=== PATIENT | male | born 1955 | race Caucasian/White ===

== ENCOUNTER 2024-03-26 09:19 | Emergency (ER) | payer MEDICARE ==
[~2024-03-26] VITALS: Ht 175.3 cm; Wt 7.5 kg
[2024-03-26 09:20] VITALS: BP 156/84; PULSE 70; RESP 18; TEMP 97.1; O2SAT 96
--- NOTE | 2024-03-26 10:15 | HMCIMG ---
KNEE 3VWS LT INDICATION: knee TECHNIQUE: KNEE 3VWS LT. FINDINGS/IMPRESSION: No displaced fracture or dislocation is seen. Correlate clinically. There is mild soft tissue swelling. Mild degenerative changes are seen. No radiopaque foreign body is identified.
[2024-03-26] MEDS: TRIAMCINOLONE ACETONIDE 40 MG/ML 1ML VIAL SQ ONE (10:29)
[2024-03-26] MEDS: LIDOCAINE HCL 1% 20 ML VIAL INJ SCH (10:29)
--- NOTE | 2024-03-26 10:49 | ERN ---
General Chief Complaint: Knee Injury/Swelling Stated Complaint: LT KNEE PAIN Time Seen by MD: 09:20 Source: patient History of Present Illness Initial Comments Patient is a 68-year-old male coming in to be evaluated for left knee pain. Patient does state he has a chronic history of knee discomfort. This flare-up began a couple of days ago in his treated for further evaluation. Allergies: Coded Allergies: lisinopril (Unverified Allergy, Unknown, HEADACHE, 03/26/24) Past Medical History Past Medical History: High Cholesterol, Heart Disease, Hypertension Medical History Other: SPINAL STENOSIS, SLEEP APNEA Past Surgical History: Other Surgical History Other: BACK SX, HEART STENT ROS Dictation CONSTITUTIONAL: No chills, no fever, no weakness, no diaphoresis, no malaise. HEAD/FACE: No signs of trauma. EENT: No eye pain, no blurred vision, no tearing, no double vision, no ear pain, no ear discharge, no nose pain, no nasal congestion, no throat pain, no throat swelling, no mouth pain. RESPIRATORY: No cough, no orthopnea, no SOB, no stridor, no wheezing. CARDIOVASCULAR: No chest pain, no edema, no palpitations, no syncope. GASTROINTESTINAL/ABDOMINAL: No abdominal pain, no constipation, no diarrhea, no nausea, no vomiting. GENITOURINARY: No abnormal discharge, no dysuria, no frequent urination, no hematuria. No complaints of pain in the genitals. MUSCULOSKELETAL: No back pain, no gout, joint pain, no joint swelling, no muscle pain, no muscle stiffness, no neck pain. INTEGUMENTARY: No change in color, no change in hair/nails, no dryness, no lesion, no lumps, no rash. NEUROLOGICAL/PSYCH: No anxiety, not depressed, no emotional problem, no headache, no numbness, no pre-existing deficit, no history of seizures, no tremors, no weakness. HEMATOLOGIC/LYMPHATIC: Not anemic, no history of blood clots, no apparent bleeding, no bruising, glands not swollen. All Systems Negative, Except as Noted. Physical Exam Physical Exam Dictation VITAL SIGNS: Reviewed. GENERAL APPEARANCE: Alert, oriented x3, no acute distress, obese. HEAD AND FACE: Non-traumatic. EYES: PERRL, pink conjunctivas, eyelid no trauma, anterior chamber clear. EARS: Pinnas intact and no signs of trauma or erythema. Ear canals clear and no discharge. TMs no erythema. NOSE: No discharge, no bleeding. OROPHARYNX: Mouth normal, teeth no caries, tongue pink. Pharynx clear, no erythema. Tonsils no exudates, no abscesses noted. Mucous membrane moist. NECK: Supple, non-tender, no thyromegaly, no masses, no JVD, no bruits. BREAST: Deferred. CHEST: No tenderness, no crepitus, no paradoxical movement, no retractions. LUNGS: Clear, well-ventilated, symmetric, no rales, no wheezing, no rhonchi, no stridor, good breath sounds bilaterally. HEART: Regular rate, regular rhythm, no murmur, no gallops. VASCULAR: No peripheral edema. ABDOMEN: Soft, positive bowel sounds, nondistended, no guarding, nontender, no rebound, no masses no hepatomegaly, no splenomegaly, no Lew's sign, no hernias. RECTAL: Deferred. GENITAL: Deferred. NEUROLOGICAL: Normal speech, gross motor function intact, gross sensory function intact. MUSCULOSKELETAL: Neck nontender, full range of motion, back nontender, full range of motion. EXTREMITIES: Nontender, full range of motion. Left knee pain on palpation, pain on flexion and extension SKIN: Color pink, dry, no turgor, no rash, no lacerations, no abrasions, no contusions. LYMPHATICS: Deferred. Results Laboratory and Microbiology Labs Reviewed?: Yes EKG/XRAY/US/CT/MRI X-RAY Comment [place] [address] [address] IMAGING REPORT Signed PATIENT: ERWIN YANEZ MR#: [id number] : 1955 SEX: M AGE: 68 LOCATION: [facility] ORDER 4 STATUS: [facility] REPORT#: [id number] SERVICE 3 REASON: knee ORDERING PHYSICIAN: MEREDITH GRACIA MD PROCEDURE: KNEE 3V LT - KNEE 3VWS LT KNEE 3VWS LT INDICATION: knee TECHNIQUE: KNEE 3VWS LT. FINDINGS/IMPRESSION: No displaced fracture or dislocation is seen. Correlate clinically. There is mild soft tissue swelling. Mild degenerative changes are seen. No radiopaque foreign body is identified. DICTATED BY: MAYANK ASHER MD DATE: 03/26/24 1012 ELECTRONICALLY SIGNED BY: MAYANK ASHER MD DATE: 03/26/24 1015 [facility] MDM: Differential diagnosis: Osteoarthritis of the left knee, left knee strain, knee dislocation, patient is a 68-year-old male coming in to be evaluated for left knee pain. On physical exam there is tenderness on palpation and flexion and extension. X-ray did not disclose acute findings. Patient will be discharged with a diagnosis of osteoarthritis of the left knee. Intra-articular injection was given patient states if symptoms improved significantly. Patient will be discharged with knee immobilizer. ED Course Orders Procedure Category Date Status Time Knee 3vws Lt RAD 03/26/24 Resulted 09:24 Knee Immobilizer CHEO 03/26/24 In Process 09:59 Triamcinolone Acet PHA 03/26/24 Complete 40mg/Ml 1ml (Kenalog 10:30 Lidocaine Hcl 1% 20ml PHA 03/26/24 In Process Vial (Lidocaine Hc 10:30 Current Medications Medications (Trade) Dose Ordered Sig/Lorena Route PRN Reason Start Time Stop Time Status Last Admin Dose Admin Lidocaine HCl (Lidocaine HCl 1% 20ml Vial) 20 ml ONCE INJ 03/26/24 10:30 04/25/24 10:29 03/26/24 10:29 Triamcinolone Acetonide (Kenalog 40) 40 mg ONCE ONCE SQ 03/26/24 10:30 03/26/24 10:31 DC 03/26/24 10:29 Vital Signs Date Time Temp Pulse Resp B/P (MAP) Pulse Ox O2 Delivery O2 Flow Rate FiO2 03/26/24 09:20 97.2 70 18 156/84 96 Room Air* 0 21 03/26/24 09:20 97.2 70 18 156/84 96 Room Air 0 Procedure Dictation Left lhoa-[id number] joint injection with Kenalog and lidocaine-and a sterile environment a left knee was sterilized and intra-articular injection was given. Patient tolerated procedure well. 5 mL of lidocaine 1% with Kenalog 1 mL was given. DX & DISP Disposition: Discharge Departure Impression: Primary Impression: Osteoarthritis of left knee Condition: Stable Additional Instructions: FOLLOW-UP WITH PRIMARY CARE PROVIDER IN 1 TO 2 DAYS. TAKE MEDICATIONS DIRECTED HERE IN THE EMERGENCY ROOM. OKAY TO CONTINUE HOME MEDICATIONS UNLESS OTHERWISE DISCUSSED DURING YOUR VISIT IN THE EMERGENCY ROOM TODAY. RETURN TO YOUR NEAREST EMERGENCY ROOM IF SYMPTOMS WORSEN OR IF THERE IS NO IMPROVEMENT. CALL 911 IF YOU NEED IMMEDIATE ASSISTANCE. TAKE TYLENOL CORS-AES-QAZQPVH NEEDED AND IF NO CONTRAINDICATIONS ARE PRESENT. INCREASE ORAL HYDRATION. A WOUND CULTURE OR URINE CULTURE WAS ORDERED HERE IN THE EMERGENCY ROOM DEPARTMENT PLEASE FOLLOW-UP WITH PRIMARY CARE PROVIDER AND ADVISE THEM TO GET REPEAT PORTS FROM OUR FACILITY. IF YOU HAD ANY SRUTHI WRAP/SPLINTS THAT WERE APPLIED HERE, PLEASE DO NOT REMOVE THEM UNTIL YOU SEE YOUR PRIMARY CARE OR SPECIALTY. Referrals: Referrals: NONE (PCP) JASPREET MYERS MD Time of Disposition: 10:48 MEREDITH GRACIA MD Mar 26, 2024 10:49
== END 2024-03-26 12:15 | disposition home or self-care (01) ==
LOC: EDH 09:19
DX: M17.12 Unilateral primary osteoarthritis, left knee (principal); E78.00 Pure hypercholesterolemia, unspecified; G47.30 Sleep apnea, unspecified; I10 Essential (primary) hypertension; Z88.8 Allergy status to other drugs, medicaments and biological substances; Z95.5 Presence of coronary angioplasty implant and graft
CPT/HCPCS: 20610; 99283; 29505; 73562; J3301